=== PATIENT | male | born 1960 | race Hispanic/Latino ===

== ENCOUNTER → 2019-10-04 | Outpatient (CLI) | payer OTHER | END | disposition home or self-care (01) | LOC: RAH 10:23 | PROVIDERS: ATTEND Nurse Practitioner Family | DX: Z13.6 Encounter for screening for cardiovascular disorders (principal) | CPT/HCPCS: 75571 ==

== ENCOUNTER 2020-05-28 06:28 | Day surgery (SDC) | payer OTHER ==
[~2020-05-28] VITALS: Ht 175.3 cm; Wt 101.6 kg
[~2020-05-28 06:28] MED LIST: CYAN-35 PO; NAPR220C15 PO; SODIUM CHLORIDE 0.9% 1000ML 1,000 ML IV ONE
[2020-05-28 07:06] VITALS: BP 144/89
[2020-05-28] MEDS ORDERED: PROPOFOL 10 MG/ML 20ML VIAL IV ONE ×2 (08:02)
[2020-05-28] MEDS ORDERED: LIDOCAINE HCL 1% 20 ML VIAL ONE (08:02)
[2020-05-28 08:22] VITALS: BP 110/69
[2020-05-28 08:27] VITALS: BP 121/82
[2020-05-28 08:32] VITALS: BP 117/74
[2020-05-28 08:45] VITALS: BP 128/80
[2020-05-28 09:01] VITALS: BP 126/80
== END 2020-05-28 09:04 | disposition home or self-care (01) ==
LOC: DAH 06:28 → ENDO 06:28
PROVIDERS: ATTEND Internal Medicine Gastroenterology
DX: Z12.11 Encounter for screening for malignant neoplasm of colon (principal); Z86.010 Personal history of colon polyps; K57.30 Diverticulosis of large intestine without perforation or abscess without bleeding; K29.70 Gastritis, unspecified, without bleeding; K31.89 Other diseases of stomach and duodenum; K64.9 Unspecified hemorrhoids; R14.2 Eructation; E78.5 Hyperlipidemia, unspecified; M19.90 Unspecified osteoarthritis, unspecified site; Z20.828 Contact with and (suspected) exposure to other viral communicable diseases; Z79.899 Other long term (current) drug therapy
CPT/HCPCS: 43239; A4215; A4221; A4222; A4223; A4606; A4620; A4663; C9803; G0105; J2704 ×2; J7030; U0003

== ENCOUNTER 2020-05-29 05:58 | Day surgery (SDC) | payer OTHER ==
[~2020-05-29] VITALS: Ht 175.3 cm; Wt 101.6 kg
[2020-05-29] VITALS (8 sets, daily range): BP systolic 101–142; BP diastolic 65–86
[~2020-05-29 05:58] MED LIST changes: -SODIUM CHLORIDE 0.9% 1000ML 1,000 ML IV ONE
[2020-05-29] MEDS ORDERED: 0.9%NACL 1000ML 1,000 ML IV ONE (06:31)
[2020-05-29] MEDS ORDERED: PROPOFOL 10 MG/ML 20ML VIAL IV ONE ×3 (07:53→08:11)
[2020-05-29] MEDS ORDERED: LIDOCAINE HCL 1% 20 ML VIAL ONE (07:54)
== END 2020-05-29 08:55 | disposition home or self-care (01) ==
LOC: DAH 05:58 → ENDO 05:58
PROVIDERS: ATTEND Internal Medicine Gastroenterology
DX: Z12.11 Encounter for screening for malignant neoplasm of colon (principal); D12.2 Benign neoplasm of ascending colon; K64.1 Second degree hemorrhoids; K57.30 Diverticulosis of large intestine without perforation or abscess without bleeding; K63.89 Other specified diseases of intestine; R14.2 Eructation; E78.5 Hyperlipidemia, unspecified; M19.90 Unspecified osteoarthritis, unspecified site; Z86.010 Personal history of colon polyps; Z79.899 Other long term (current) drug therapy
CPT/HCPCS: 45380; 45385; A4215; A4221; A4222; A4223; A4606; A4620; A4663; J2704 ×3; J7030

== ENCOUNTER → 2020-08-27 | Outpatient (CLI) | payer OTHER | END | disposition home or self-care (01) | LOC: RAH 10:26 | PROVIDERS: ATTEND Nurse Practitioner Family | DX: M25.561 Pain in right knee (principal); M17.12 Unilateral primary osteoarthritis, left knee; M16.0 Bilateral primary osteoarthritis of hip; M19.041 Primary osteoarthritis, right hand; M19.042 Primary osteoarthritis, left hand | CPT/HCPCS: 73521; 73562 ==

== ENCOUNTER → 2020-10-01 | Outpatient (CLI) | payer OTHER ==
[2020-10-01 11:15] LABS: BASOPHILS % (AUTO) 0.7 % (0.0-5.0); EOSINOPHILS % (AUTO) 3.2 % (0.0-8.0); HEMATOCRIT 43.9 % (42-54); LYMPHOCYTES % (AUTO) 23.3 % (21.0-51.0); MEAN CORPUSCULAR VOLUME 93.8 fL (79-99); MONOCYTES % (AUTO) 7.1 % (3.0-13.0); NEUTROPHILS % (AUTO) 65.3 % (40.0-77.0); PLATELET COUNT (AUTO) 202 K/uL (130-400); RED BLOOD CELL COUNT(AUTO) 4.68 MIL/uL (4.50-6.20); RED CELL DISTRIBUTION WIDTH 13.2 % (11.0-15.5); WHITE BLOOD COUNT (AUTO) 7.5 K/uL (4.8-10.8)
[2020-10-01 11:31] LABS: APPEARANCE,URINE Clear (CLEAR); BILIRUBIN,URINE Negative (NEGATIVE); COLOR,URINE Yellow (YELLOW); GLUCOSE, URINE (UA) Negative (NEGATIVE); KETONES,URINE Negative (NEGATIVE); LEUKOCYTE ESTERASE ,URINE Trace (NEGATIVE); NITRATE,URINE Negative (NEGATIVE); OCCULT BLOOD,URINE Negative (NEGATIVE); PROTEIN,URINE Negative (NEGATIVE); UROBILINOGEN,URINE 0.2 mg/dL (0.2-1.0)
[2020-10-01 11:49] LABS: ALBUMIN 3.9 g/dL (3.5-5.0); BILIRUBIN,TOTAL 0.9 mg/dL (0.2-1.0); CREATININE 0.9 mg/dL (0.5-1.5); POTASSIUM 4.3 mmol/L (3.5-5.1); THYROID STIMULATING HORMONE 1.68 uIU/mL (0.36-3.74); TOTAL PROTEIN, SERUM 7.9 g/dL (6.0-8.3)
[2020-10-01 12:03] LABS: BACTERIA,URINE Rare /HPF (None Seen); MUCUS,URINE Few LPF (None Seen); RBC,URINE 0-1 /HPF (0-1); SQUAMOUS EPITHELIAL CELL,UR Rare /HPF (0-2); WBC,URINE 0-1 /HPF (0-1)
[2020-10-01 12:29] LABS: ERYTHROCYTE SEDIMENTATION RATE 10 MM/HR (0-20)
== END | disposition home or self-care (01) ==
LOC: LAB 10:11
PROVIDERS: ATTEND Nurse Practitioner Family
DX: Z13.29 Encounter for screening for other suspected endocrine disorder (principal); Z13.21 Encounter for screening for nutritional disorder; I10 Essential (primary) hypertension; M17.0 Bilateral primary osteoarthritis of knee
CPT/HCPCS: 36415; 80053; 80061; 81001; 82306; 84439; 84443; 85025; 85651; 86038; 86215; 86235; 86431

== ENCOUNTER → 2020-12-06 | Outpatient (CLI) | payer OTHER ==
[2020-12-06 09:34] LABS: BASOPHILS % (AUTO) 0.4 % (0.0-5.0); EOSINOPHILS % (AUTO) 2.3 % (0.0-8.0); HEMATOCRIT 45.1 % (42-54); LYMPHOCYTES % (AUTO) 18.9 % (21.0-51.0); MEAN CORPUSCULAR HEMOGLOBIN 31.1 pg (27.0-33.0); MEAN CORPUSCULAR HGB CONC 32.6 g/dL (32.0-36.0); MEAN CORPUSCULAR VOLUME 95.6 fL (79-99); MONOCYTES % (AUTO) 6.5 % (3.0-13.0); NEUTROPHILS % (AUTO) 71.5 % (40.0-77.0); PLATELET COUNT (AUTO) 193 K/uL (130-400); RED BLOOD CELL COUNT(AUTO) 4.72 MIL/uL (4.50-6.20); RED CELL DISTRIBUTION WIDTH 12.9 % (11.0-15.5); WHITE BLOOD COUNT (AUTO) 7.3 K/uL (4.8-10.8)
[2020-12-06 09:35] LABS: APPEARANCE,URINE Clear (CLEAR); BILIRUBIN,URINE Negative (NEGATIVE); COLOR,URINE Yellow (YELLOW); GLUCOSE, URINE (UA) Negative (NEGATIVE); KETONES,URINE Negative (NEGATIVE); LEUKOCYTE ESTERASE ,URINE Negative (NEGATIVE); NITRATE,URINE Negative (NEGATIVE); OCCULT BLOOD,URINE Negative (NEGATIVE); PROTEIN,URINE Negative (NEGATIVE); UROBILINOGEN,URINE 0.2 mg/dL (0.2-1.0)
[2020-12-06 10:16] LABS: BILIRUBIN,TOTAL 0.6 mg/dL (0.2-1.0); CREATININE 0.9 mg/dL (0.5-1.5); CRP QUANTITATIVE 5.4 mg/L (0.00-9.0); POTASSIUM 4.1 mmol/L (3.5-5.1); THYROID STIMULATING HORMONE 2.29 uIU/mL (0.36-3.74)
[2020-12-06 10:40] LABS: ERYTHROCYTE SEDIMENTATION RATE 10 MM/HR (0-20)
== END | disposition home or self-care (01) ==
LOC: LAB 08:35
PROVIDERS: ATTEND Nurse Practitioner Family
DX: Z13.29 Encounter for screening for other suspected endocrine disorder (principal); Z13.220 Encounter for screening for lipoid disorders; Z13.21 Encounter for screening for nutritional disorder; Z12.5 Encounter for screening for malignant neoplasm of prostate; I10 Essential (primary) hypertension
CPT/HCPCS: 36415; 80053; 80061; 81003; 82306; 84153; 84439; 84443; 85025; 85651; 86140

== ENCOUNTER → 2020-12-25 | Outpatient (CLI) | payer OTHER | END | disposition home or self-care (01) | LOC: RAH 08:37 | PROVIDERS: ATTEND Orthopaedic Surgery | DX: S83.242A Other tear of medial meniscus, current injury, left knee, initial encounter (principal); M17.12 Unilateral primary osteoarthritis, left knee; M25.462 Effusion, left knee; X58.XXXA Exposure to other specified factors, initial encounter; Y93.89 Activity, other specified; Y92.89 Other specified places as the place of occurrence of the external cause; Y99.8 Other external cause status | CPT/HCPCS: 73721 ==

== ENCOUNTER 2021-01-31 08:00 | Inpatient (IN) | payer OTHER ==
[~2021-01-31] VITALS: Ht 172.7 cm; Wt 101.6 kg
[2021-01-31 09:21] LABS: PROTHROMBIN TIME 10.9 SEC (9.6-11.6)
[2021-01-31 09:22] LABS: CREATININE 0.9 mg/dL (0.5-1.5); POTASSIUM 4.5 mmol/L (3.5-5.1)
[2021-01-31 09:30] LABS: BILIRUBIN,URINE Negative (NEGATIVE); COLOR,URINE Yellow (YELLOW); GLUCOSE, URINE (UA) Negative (NEGATIVE); KETONES,URINE Negative (NEGATIVE); LEUKOCYTE ESTERASE ,URINE Negative (NEGATIVE); NITRATE,URINE Negative (NEGATIVE); OCCULT BLOOD,URINE Negative (NEGATIVE); PROTEIN,URINE Negative (NEGATIVE)
[2021-01-31] MEDS ORDERED: HYDR12.54 PO (09:42)
[2021-01-31] MEDS ORDERED: AMLO-257 PO (09:42)
[2021-01-31] MEDS ORDERED: LOSA50TA64 PO (09:42)
[2021-01-31 09:47] LABS: APPEARANCE,URINE CLEAR (CLEAR)
[2021-02-03 07:10] VITALS: BP 122/74
[2021-02-03] MEDS ORDERED: LACTATED RINGERS 1000ML 1,000 ML IV ONE (07:28)
[2021-02-03] MEDS ORDERED: CEFAZOLIN SODIUM 1 GM VIAL ONE (07:28)
[2021-02-04] MEDS ORDERED: CEFAZOLIN SODIUM 1 GM VIAL IVP SCH (05:00)
[2021-02-07] VITALS (20 sets, daily range): BP systolic 124–153; BP diastolic 72–89
[2021-02-07] MEDS ORDERED: LACTATED RINGERS 1000ML 1,000 ML IV ONE (06:25)
[2021-02-07] MEDS ORDERED: OLME40TA18 PO (06:59)
[2021-02-07] MEDS ORDERED: LIDOCAINE PF 100MG/5ML (2%) SYRINGE 5ML ONE (07:04)
[2021-02-07] MEDS ORDERED: SUCCINYLCHOLINE CHLORIDE 20 MG/ML 10 ML VIAL ONE (07:04)
[2021-02-07] MEDS ORDERED: ONDANSETRON 4MG INJ ONE ×2 (07:04→10:03)
[2021-02-07] MEDS ORDERED: GLYCOPYRROLATE 1 MG/5 ML SYRINGE ONE (07:05)
[2021-02-07] MEDS ORDERED: DEXAMETHASONE SOD PHOSPHATE 10MG/ML 1ML VIAL ONE (07:05)
[2021-02-07] MEDS ORDERED: PROPOFOL 10 MG/ML 20ML VIAL IV ONE (07:05)
[2021-02-07] MEDS: CEFAZOLIN SODIUM 1 GM VIAL ONE ×2 (07:06→09:15)
[2021-02-07] MEDS ORDERED: MIDAZOLAM HCL 1 MG/ML 2ML VIAL ONE (07:06)
[2021-02-07] MEDS ORDERED: NEOSTIGMINE 5MG/5ML SYR IV ONE (07:06)
[2021-02-07] MEDS ORDERED: ROCURONIUM 10MG/1ML SYR 10 MG/ML ML ONE ×2 (07:07→09:17)
[2021-02-07] MEDS ORDERED: FENTANYL CITRATE PF 50 MCG/1 ML 2ML VIAL ONE ×2 (07:07→10:58)
[2021-02-07] MEDS ORDERED: ROPIVACAINE 0.5% 5MG/ML 30ML IJ ONE (07:09)
[2021-02-07] MEDS ORDERED: ALBUMIN (HUMAN) 5% 250 ML IV ONE (07:19)
[2021-02-07] MEDS ORDERED: CEFAZOLIN SODIUM 1 GM VIAL ONE (07:37)
[2021-02-07] MEDS ORDERED: TRANEXAMIC ACID 1000MG/10ML ONE ×2 (08:34→12:29)
[2021-02-07] MEDS ORDERED: CEFAZOLIN SODIUM 1 GM VIAL IRRIG ONE (09:45)
[2021-02-07] MEDS ORDERED: MEPERIDINE-PF 25 MG/ML SYG ONE ×3 (10:54→12:43)
[2021-02-07] MEDS ORDERED: TEMAZEPAM 15 MG CAPSULE PO PRN (12:00)
[2021-02-07] MEDS ORDERED: POTASSIUM CHLORIDE 20MEQ/100ML 100 ML IV PRN (12:00)
[2021-02-07] MEDS ORDERED: ONDANSETRON 4MG INJ IVP PRN (12:00)
[2021-02-07] MEDS ORDERED: OXYCODONE HCL 5 MG TAB PO PRN (12:00)
[2021-02-07] MEDS ORDERED: KCL 20 MEQ ERTAB PO PRN (12:00)
[2021-02-07] MEDS: ACETAMINOPHEN 500 MG TABLET PO SCH ×2 (12:00→21:18)
[2021-02-07] MEDS ORDERED: POTASSIUM CHLORIDE 10% ELIXIR 20 MEQ/15 ML UDCUP PO PRN (12:00)
[2021-02-07] MEDS ORDERED: DiphenhydrAMINE HCL 50 MG/ML VIAL IVP PRN (12:00)
[2021-02-07] MEDS ORDERED: FERROUS FUMARATE 324 MG TABLET PO PRN (12:00)
[2021-02-07] MEDS ORDERED: LIDOCAINE HCL-MPF 1% 2ML VIAL IV PRN (12:00)
[2021-02-07] MEDS: 0.9%NACL 1000ML 1,000 ML IV SCH ×2 (12:00→21:19)
[2021-02-07] MEDS ORDERED: TRAMADOL HCL 50 MG TABLET PO PRN (12:00)
[2021-02-07] MEDS: KETOROLAC 15MG/ML VIAL (15MG/ML) IV PRN ×2 (15:31→21:18)
[2021-02-07] MEDS: CEFAZOLIN SODIUM 1 GM VIAL IVP SCH (17:26)
[2021-02-07] MEDS: OXYCODONE HCL 5 MG TAB PO PRN (17:49)
[2021-02-07] MEDS: AMLODIPINE 5 MG TAB PO SCH (21:17)
[2021-02-07] MEDS: CELECOXIB 200 MG CAP PO SCH (21:18)
[2021-02-07] MEDS: FAMOTIDINE 20MG TAB PO SCH (21:18)
[2021-02-07] MEDS: PREGABALIN 25 MG CAP PO SCH (21:19)
[2021-02-07] MEDS: TAMSULOSIN HCL 0.4 MG CAP.ER.24H PO SCH (21:19)
[2021-02-07] MEDS: ASPIRIN 81 MG EC TAB PO SCH (21:19)
[2021-02-08] VITALS (7 sets, daily range): BP systolic 95–114; BP diastolic 55–68
[2021-02-08] MEDS: CEFAZOLIN SODIUM 1 GM VIAL IVP SCH (00:06)
[2021-02-08] MEDS: ACETAMINOPHEN 500 MG TABLET PO SCH ×3 (04:00→19:49)
[2021-02-08 05:49] LABS: MEAN CORPUSCULAR HEMOGLOBIN 30.9 pg (27.0-33.0); MEAN CORPUSCULAR VOLUME 93.5 fL (79-99); RED BLOOD CELL COUNT(AUTO) 3.53 MIL/uL (4.50-6.20); RED CELL DISTRIBUTION WIDTH 12.9 % (11.0-15.5); WHITE BLOOD COUNT (AUTO) 15.7 K/uL (4.8-10.8)
[2021-02-08 06:27] LABS: POTASSIUM 4.3 mmol/L (3.5-5.1)
[2021-02-08] MEDS: 0.9%NACL 1000ML 1,000 ML IV SCH (08:00)
[2021-02-08] MEDS: PREGABALIN 25 MG CAP PO SCH ×2 (08:07→19:49)
[2021-02-08] MEDS: CELECOXIB 200 MG CAP PO SCH ×2 (08:07→19:49)
[2021-02-08] MEDS: POLYETHYLENE GLYCOL 3350 17 GM POWD.PACK PO SCH (08:07)
[2021-02-08] MEDS: ASPIRIN 81 MG EC TAB PO SCH ×2 (08:08→19:49)
[2021-02-08] MEDS: FAMOTIDINE 20MG TAB PO SCH ×2 (08:08→19:49)
[2021-02-08] MEDS: OXYCODONE HCL 5 MG TAB PO PRN ×2 (08:08→14:17)
[2021-02-08] MEDS: CALCIUM CARB 500MG PO PRN ×2 (08:42→19:48)
[2021-02-08] MEDS: HYDROCHLOROTHIAZIDE 25 MG TABLET PO SCH (09:00)
[2021-02-08] MEDS: Olmesartan Medoxomil 40 MG PO SCH (09:00)
[2021-02-08] MEDS: TAMSULOSIN HCL 0.4 MG CAP.ER.24H PO SCH (19:48)
[2021-02-08] MEDS: AMLODIPINE 5 MG TAB PO SCH (19:49)
[2021-02-09] VITALS: BP 100/61
[2021-02-09 04:00] VITALS: BP 109/63
[2021-02-09] MEDS: ACETAMINOPHEN 500 MG TABLET PO SCH ×2 (05:19→12:17)
[2021-02-09 07:47] VITALS: BP 120/69
[2021-02-09] MEDS: ASPIRIN 81 MG EC TAB PO SCH (08:49)
[2021-02-09] MEDS: CELECOXIB 200 MG CAP PO SCH (08:49)
[2021-02-09] MEDS: FAMOTIDINE 20MG TAB PO SCH (08:49)
[2021-02-09] MEDS: PREGABALIN 25 MG CAP PO SCH (08:49)
[2021-02-09] MEDS: POLYETHYLENE GLYCOL 3350 17 GM POWD.PACK PO SCH (08:50)
[2021-02-09] MEDS: HYDROCHLOROTHIAZIDE 25 MG TABLET PO SCH (08:50)
[2021-02-09] MEDS: OXYCODONE HCL 5 MG TAB PO PRN ×2 (08:51→17:15)
[2021-02-09] MEDS: Olmesartan Medoxomil 40 MG PO SCH (09:00)
[2021-02-09 12:00] VITALS: BP 115/55
[2021-02-09] MEDS ORDERED: HYDR-4060 PO (14:12)
[2021-02-09] MEDS ORDERED: AEC81 PO (14:12)
[2021-02-09 16:00] VITALS: BP 109/65
[2021-02-10] MEDS ORDERED: BISACODYL 10 MG SUPP.RECT RC PRN (12:00)
== END 2021-02-09 18:50 | disposition home health service (06) | DRG 470 ==
LOC: EDSTATUS 08:00 → UNDOADMIN 02-03 06:36 → DAHIP 02-03 06:36 → 3CH 02-07 13:35
PROVIDERS: ADMIT Orthopaedic Surgery; ATTEND Orthopaedic Surgery
PROC: 0SRB0JZ Replacement of Left Hip Joint with Synthetic Substitute, Open Approach (ICD-10-PCS; principal; 2021-02-07 08:40)
DX: M16.12 Unilateral primary osteoarthritis, left hip (principal); Z20.822 Contact with and (suspected) exposure to COVID-19; I10 Essential (primary) hypertension; E78.00 Pure hypercholesterolemia, unspecified; Z82.49 Family history of ischemic heart disease and other diseases of the circulatory system
CPT/HCPCS: 36415; 73503; 80048; 81003; 85027; 85610; 87088; 87635; 87641; 97039; C1713; C1776; G0378; J0330; J0690; J1100; J1885; J2001; J2175; J2250; J2405; J2704; J2710; J2795; J3010; J3490; J7030; J7120; P9045

== ENCOUNTER → 2021-04-17 | Outpatient (CLI) | payer OTHER ==
[~2021-04-17] MED LIST changes: +AEC81 PO; +AMLO-257 PO; -CYAN-35 PO; +HYDR-4060 PO; +HYDR12.54 PO; -NAPR220C15 PO
[2021-04-17 09:18] LABS: BASOPHILS % (AUTO) 0.7 % (0.0-5.0); EOSINOPHILS % (AUTO) 4.7 % (0.0-8.0); HEMATOCRIT 44.5 % (42-54); LYMPHOCYTES % (AUTO) 25.7 % (21.0-51.0); MEAN CORPUSCULAR HEMOGLOBIN 29.9 pg (27.0-33.0); MEAN CORPUSCULAR HGB CONC 32.4 g/dL (32.0-36.0); MEAN CORPUSCULAR VOLUME 92.3 fL (79-99); MONOCYTES % (AUTO) 7.1 % (3.0-13.0); NEUTROPHILS % (AUTO) 61.4 % (40.0-77.0); PLATELET COUNT (AUTO) 213 K/uL (130-400); RED BLOOD CELL COUNT(AUTO) 4.82 MIL/uL (4.50-6.20); RED CELL DISTRIBUTION WIDTH 12.9 % (11.0-15.5); WHITE BLOOD COUNT (AUTO) 7.2 K/uL (4.8-10.8)
[2021-04-17 09:23] LABS: APPEARANCE,URINE Clear (CLEAR); BILIRUBIN,URINE Negative (NEGATIVE); COLOR,URINE Yellow (YELLOW); GLUCOSE, URINE (UA) Negative (NEGATIVE); KETONES,URINE Negative (NEGATIVE); LEUKOCYTE ESTERASE ,URINE Negative (NEGATIVE); NITRATE,URINE Negative (NEGATIVE); OCCULT BLOOD,URINE Negative (NEGATIVE); PROTEIN,URINE Negative (NEGATIVE)
[2021-04-17 09:39] LABS: ALBUMIN 4.1 g/dL (3.5-5.0); BILIRUBIN,TOTAL 0.9 mg/dL (0.2-1.0); CREATININE 0.9 mg/dL (0.5-1.5); POTASSIUM 4.2 mmol/L (3.5-5.1); THYROID STIMULATING HORMONE 2.22 uIU/mL (0.36-3.74)
[2021-04-17 10:19] LABS: ERYTHROCYTE SEDIMENTATION RATE 9 MM/HR (0-20)
== END | disposition home or self-care (01) ==
LOC: LAB 08:20
PROVIDERS: ATTEND Nurse Practitioner Family
DX: Z13.220 Encounter for screening for lipoid disorders (principal); Z13.29 Encounter for screening for other suspected endocrine disorder; I10 Essential (primary) hypertension; E55.9 Vitamin D deficiency, unspecified
CPT/HCPCS: 36415; 80053; 80061; 81003; 82306; 84439; 84443; 85025; 85651

== ENCOUNTER 2021-08-25 15:00 | Inpatient (IN) | payer OTHER ==
[~2021-08-25] VITALS: Ht 175.3 cm; Wt 103.9 kg
[2021-08-25 10:25] LABS: BASOPHILS % (AUTO) 0.6 % (0.0-5.0); EOSINOPHILS % (AUTO) 3.1 % (0.0-8.0); HEMATOCRIT 40.9 % (42-54); LYMPHOCYTES % (AUTO) 21.5 % (21.0-51.0); MEAN CORPUSCULAR HEMOGLOBIN 31.8 pg (27.0-33.0); MEAN CORPUSCULAR HGB CONC 33.7 g/dL (32.0-36.0); MEAN CORPUSCULAR VOLUME 94.2 fL (79-99); MONOCYTES % (AUTO) 6.9 % (3.0-13.0); NEUTROPHILS % (AUTO) 67.5 % (40.0-77.0); PLATELET COUNT (AUTO) 192 K/uL (130-400); RED BLOOD CELL COUNT(AUTO) 4.34 MIL/uL (4.50-6.20); RED CELL DISTRIBUTION WIDTH 13.4 % (11.0-15.5); WHITE BLOOD COUNT (AUTO) 7.2 K/uL (4.8-10.8)
[2021-08-25 10:35] LABS: CREATININE 0.9 mg/dL (0.5-1.5); POTASSIUM 4.3 mmol/L (3.5-5.1)
[2021-08-25 10:48] LABS: PROTHROMBIN TIME 10.9 SEC (9.6-11.6)
[2021-08-25 10:48] LABS: APPEARANCE,URINE Clear (CLEAR); BILIRUBIN,URINE Negative (NEGATIVE); COLOR,URINE Yellow (YELLOW); GLUCOSE, URINE (UA) Negative (NEGATIVE); KETONES,URINE Negative (NEGATIVE); LEUKOCYTE ESTERASE ,URINE Negative (NEGATIVE); NITRATE,URINE Negative (NEGATIVE); OCCULT BLOOD,URINE Negative (NEGATIVE); PH,URINE 5.5 (5.0-8.0); PROTEIN,URINE Negative (NEGATIVE); UROBILINOGEN,URINE 0.2 mg/dL (0.2-1.0)
[~2021-08-25 15:00] MED LIST changes: -AEC81 PO; -HYDR-4060 PO
[2021-08-26 10:02] VITALS: BP 154/83
[2021-08-26] MEDS ORDERED: OLME20TA22 PO (10:23)
[2021-08-26] MEDS ORDERED: ATOR10 PO (10:23)
[2021-08-26] MEDS ORDERED: HYDR-4060 PO (10:27)
[2021-08-26] MEDS ORDERED: NAPR220C15 PO (10:29)
[2021-08-27] VITALS (21 sets, daily range): BP systolic 112–154; BP diastolic 59–90
[2021-08-27] MEDS: CEFAZOLIN SODIUM 1 GM VIAL IVP ONE ×2 (11:30→15:46)
[2021-08-27] MEDS ORDERED: CEFAZOLIN SODIUM 1 GM VIAL ONE ×3 (11:40→23:19)
[2021-08-27] MEDS ORDERED: LACTATED RINGERS 1000ML 1,000 ML IV ONE (11:40)
[2021-08-27] MEDS ORDERED: ACETAMINOPHEN 500 MG TABLET ONE ×2 (14:12→14:17)
[2021-08-27] MEDS ORDERED: CELECOXIB 200 MG CAP ONE ×2 (14:12→14:17)
[2021-08-27] MEDS ORDERED: METOCLOPRAMIDE 10 MG/2 ML VIAL ONE (14:12)
[2021-08-27] MEDS ORDERED: TRANEXAMIC ACID 1000MG/10ML ONE ×2 (14:47→20:08)
[2021-08-27] MEDS ORDERED: LIDOCAINE PF 100MG/5ML (2%) SYRINGE 5ML ONE (15:21)
[2021-08-27] MEDS ORDERED: ROCURONIUM 10MG/1ML SYR 10 MG/ML ML ONE ×2 (15:21→16:37)
[2021-08-27] MEDS ORDERED: SUCCINYLCHOLINE CHLORIDE 20 MG/ML 10 ML VIAL ONE (15:21)
[2021-08-27] MEDS ORDERED: PROPOFOL 10 MG/ML 20ML VIAL IV ONE (15:21)
[2021-08-27] MEDS ORDERED: FENTANYL CITRATE PF 50 MCG/1 ML 2ML VIAL ONE ×2 (15:21→17:43)
[2021-08-27] MEDS ORDERED: MIDAZOLAM HCL 1 MG/ML 2ML VIAL ONE (15:21)
[2021-08-27] MEDS ORDERED: GLYCOPYRROLATE 1 MG/5 ML SYRINGE ONE ×2 (15:51→19:37)
[2021-08-27] MEDS ORDERED: EPHEDRINE SULFATE 50 MG/ML AMPULE ONE (16:30)
[2021-08-27] MEDS ORDERED: ROPIVACAINE 0.5% 5MG/ML 30ML IJ ONE (17:01)
[2021-08-27] MEDS ORDERED: ROCURONIUM BROMIDE 10MG/1ML 5ML VL ONE (17:46)
[2021-08-27] MEDS ORDERED: ONDANSETRON 4MG INJ IVP PRN (19:30)
[2021-08-27] MEDS ORDERED: TEMAZEPAM 15 MG CAPSULE PO PRN (19:30)
[2021-08-27] MEDS ORDERED: POTASSIUM CHLORIDE 20MEQ/100ML 100 ML IV PRN (19:30)
[2021-08-27] MEDS ORDERED: DiphenhydrAMINE HCL 50 MG/ML VIAL IVP PRN (19:30)
[2021-08-27] MEDS ORDERED: KETOROLAC 15MG/ML VIAL (15MG/ML) IV PRN (19:30)
[2021-08-27] MEDS ORDERED: FERROUS FUMARATE 324 MG TABLET PO PRN (19:30)
[2021-08-27] MEDS ORDERED: TRAMADOL HCL 50 MG TABLET PO PRN (19:30)
[2021-08-27] MEDS ORDERED: LIDOCAINE HCL-MPF 1% 2ML VIAL IV PRN (19:30)
[2021-08-27] MEDS: ACETAMINOPHEN 500 MG TABLET PO SCH ×2 (19:30→23:25)
[2021-08-27] MEDS ORDERED: POTASSIUM CHLORIDE 10% ELIXIR 20 MEQ/15 ML UDCUP PO PRN (19:30)
[2021-08-27] MEDS ORDERED: KCL 20 MEQ ERTAB PO PRN (19:30)
[2021-08-27] MEDS ORDERED: NEOSTIGMINE 5MG/5ML SYR IV ONE (19:37)
[2021-08-27] MEDS ORDERED: KETOROLAC 30MG VIAL (30MG/ML) ONE (20:07)
[2021-08-27] MEDS ORDERED: MEPERIDINE-PF 25 MG/ML SYG ONE (20:08)
[2021-08-27] MEDS: CELECOXIB 200 MG CAP PO SCH (21:00)
[2021-08-27] MEDS: 0.9%NACL 1000ML 1,000 ML IV SCH (21:58)
[2021-08-27] MEDS: OXYCODONE HCL 5 MG TAB PO PRN (23:25)
[2021-08-27] MEDS: ASPIRIN 81 MG EC TAB PO SCH (23:25)
[2021-08-27] MEDS: FAMOTIDINE 20MG TAB PO SCH (23:26)
[2021-08-27] MEDS: CEFAZOLIN SODIUM 1 GM VIAL IVP SCH (23:26)
[2021-08-27] MEDS: PREGABALIN 25 MG CAP PO SCH (23:26)
[2021-08-28] VITALS (9 sets, daily range): BP systolic 100–122; BP diastolic 56–76
[2021-08-28] MEDS: 0.9%NACL 1000ML 1,000 ML IV SCH ×2 (00:33→14:31)
[2021-08-28 05:01] LABS: HEMATOCRIT 32.7 % (42-54); MEAN CORPUSCULAR HEMOGLOBIN 32.2 pg (27.0-33.0); MEAN CORPUSCULAR HGB CONC 34.9 g/dL (32.0-36.0); MEAN CORPUSCULAR VOLUME 92.4 fL (79-99); RED BLOOD CELL COUNT(AUTO) 3.54 MIL/uL (4.50-6.20); RED CELL DISTRIBUTION WIDTH 13.3 % (11.0-15.5); WHITE BLOOD COUNT (AUTO) 12.1 K/uL (4.8-10.8)
[2021-08-28 05:09] LABS: POTASSIUM 3.9 mmol/L (3.5-5.1)
[2021-08-28] MEDS: OXYCODONE HCL 5 MG TAB PO PRN ×2 (08:10→22:31)
[2021-08-28] MEDS: CALCIUM CARB 500MG PO PRN ×2 (09:47→20:09)
[2021-08-28] MEDS: ASPIRIN 81 MG EC TAB PO SCH ×2 (09:47→20:01)
[2021-08-28] MEDS: CEFAZOLIN SODIUM 1 GM VIAL IVP SCH (09:47)
[2021-08-28] MEDS: POLYETHYLENE GLYCOL 3350 17 GM POWD.PACK PO SCH (09:47)
[2021-08-28] MEDS: FAMOTIDINE 20MG TAB PO SCH ×2 (09:48→20:01)
[2021-08-28] MEDS: LOSARTAN 100 MG TABLET PO SCH (09:48)
[2021-08-28] MEDS: HYDROCHLOROTHIAZIDE 25 MG TABLET PO SCH (09:48)
[2021-08-28] MEDS: CELECOXIB 200 MG CAP PO SCH ×2 (09:48→20:01)
[2021-08-28] MEDS: PREGABALIN 25 MG CAP PO SCH ×2 (09:48→20:01)
[2021-08-28] MEDS: ACETAMINOPHEN 500 MG TABLET PO SCH ×2 (11:47→18:44)
[2021-08-28] MEDS: ATORVASTATIN 10 MG TABLET PO SCH (20:01)
[2021-08-28] MEDS: AMLODIPINE 5 MG TAB PO SCH (20:09)
[2021-08-29 04:06] VITALS: BP 107/61
[2021-08-29] MEDS: ACETAMINOPHEN 500 MG TABLET PO SCH ×3 (04:27→20:45)
[2021-08-29 08:20] VITALS: BP 124/74
[2021-08-29] MEDS: CELECOXIB 200 MG CAP PO SCH ×2 (08:38→20:44)
[2021-08-29] MEDS: PREGABALIN 25 MG CAP PO SCH ×2 (08:38→20:44)
[2021-08-29] MEDS: OXYCODONE HCL 5 MG TAB PO PRN ×2 (08:38→13:13)
[2021-08-29] MEDS: LOSARTAN 100 MG TABLET PO SCH (08:38)
[2021-08-29] MEDS: FAMOTIDINE 20MG TAB PO SCH ×2 (08:38→20:44)
[2021-08-29] MEDS: ASPIRIN 81 MG EC TAB PO SCH ×2 (08:39→20:44)
[2021-08-29] MEDS: HYDROCHLOROTHIAZIDE 25 MG TABLET PO SCH (08:39)
[2021-08-29] MEDS: POLYETHYLENE GLYCOL 3350 17 GM POWD.PACK PO SCH (08:39)
[2021-08-29 11:04] VITALS: BP 125/75
[2021-08-29 15:37] VITALS: BP 114/67
[2021-08-29] MEDS ORDERED: HYDR-4060 PO (19:46)
[2021-08-29] MEDS ORDERED: AEC81 PO (19:46)
[2021-08-29] MEDS: AMLODIPINE 5 MG TAB PO SCH (20:44)
[2021-08-29] MEDS: ATORVASTATIN 10 MG TABLET PO SCH (20:44)
[2021-08-30] MEDS ORDERED: BISACODYL 10 MG SUPP.RECT RC PRN (19:30)
== END 2021-08-29 22:35 | disposition home health service (06) | DRG 470 ==
LOC: EDSTATUS 15:00 → DAHIP 08-27 10:31 → 4AH 08-27 21:05
PROVIDERS: ADMIT Orthopaedic Surgery; ATTEND Orthopaedic Surgery
PROC: 0SR90JZ Replacement of Right Hip Joint with Synthetic Substitute, Open Approach (ICD-10-PCS; principal; 2021-08-27 15:21)
PROC: 3E0T3BZ Introduction of Anesthetic Agent into Peripheral Nerves and Plexi, Percutaneous Approach (ICD-10-PCS; 2021-08-27 15:21)
DX: M16.11 Unilateral primary osteoarthritis, right hip (principal); D64.9 Anemia, unspecified; E78.00 Pure hypercholesterolemia, unspecified; I10 Essential (primary) hypertension; Z82.49 Family history of ischemic heart disease and other diseases of the circulatory system; Z96.642 Presence of left artificial hip joint
CPT/HCPCS: 36415; 73503; 80048; 81003; 85025; 85027; 85610; 87635; 87641; 97039; C1776; G0378; J0330; J0690; J1885; J2001; J2175; J2250; J2704; J2710; J2765; J2795; J3010; J3490; J7120

== ENCOUNTER → 2022-06-02 | Outpatient (CLI) | payer OTHER, MEDICAID ==
[~2022-06-02] MED LIST changes: +ACET-2247 PO; +AEC81 PO; +ALBU8.5H8 IH; +ATOR10 PO; +D-ME1POW16 PO; +HYDR-4060 PO; +OLME20TA22 PO
[2022-06-02 10:20] LABS: BASOPHILS % (AUTO) 0.7 % (0.0-5.0); HEMATOCRIT 42.7 % (42-54); LYMPHOCYTES % (AUTO) 31.5 % (21.0-51.0); MEAN CORPUSCULAR HEMOGLOBIN 31.3 pg (27.0-33.0); MEAN CORPUSCULAR HGB CONC 33.3 g/dL (32.0-36.0); MEAN CORPUSCULAR VOLUME 94.3 fL (79-99); MONOCYTES % (AUTO) 7.2 % (3.0-13.0); NEUTROPHILS % (AUTO) 57.2 % (40.0-77.0); PLATELET COUNT (AUTO) 170 K/uL (130-400); RED BLOOD CELL COUNT(AUTO) 4.53 MIL/uL (4.50-6.20); RED CELL DISTRIBUTION WIDTH 13.2 % (11.0-15.5); WHITE BLOOD COUNT (AUTO) 5.7 K/uL (4.8-10.8)
[2022-06-02 10:32] LABS: APPEARANCE,URINE CLEAR (CLEAR); BILIRUBIN,URINE NEGATIVE (NEGATIVE); COLOR,URINE LIGHT-YELLOW (YELLOW); GLUCOSE, URINE (UA) NEGATIVE (NEGATIVE); KETONES,URINE NEGATIVE (NEGATIVE); LEUKOCYTE ESTERASE ,URINE NEGATIVE Leu/uL (NEGATIVE); NITRATE,URINE NEGATIVE (NEGATIVE); OCCULT BLOOD,URINE NEGATIVE (NEGATIVE); PH,URINE 5.5 (5.0-8.0); PROTEIN,URINE NEGATIVE (NEGATIVE); UROBILINOGEN,URINE 0.2 mg/dL (0.2-1.0)
[2022-06-02 11:28] LABS: ALBUMIN 3.7 g/dL (3.5-5.0); CREATININE 0.9 mg/dL (0.5-1.5); POTASSIUM 4.2 mmol/L (3.5-5.1); THYROID STIMULATING HORMONE 1.94 uIU/mL (0.36-3.74); TOTAL PROTEIN, SERUM 7.3 g/dL (6.0-8.3)
[2022-06-02 11:37] LABS: ERYTHROCYTE SEDIMENTATION RATE 17 MM/HR (0-20)
== END | disposition home or self-care (01) ==
LOC: LAB 09:44
PROVIDERS: ATTEND Nurse Practitioner Family
DX: Z12.5 Encounter for screening for malignant neoplasm of prostate (principal); I10 Essential (primary) hypertension; E78.00 Pure hypercholesterolemia, unspecified; E59 Dietary selenium deficiency; M13.0 Polyarthritis, unspecified
CPT/HCPCS: 36415; 80053; 80061; 81003; 82306; 84153; 84439; 84443; 84481; 85025; 85651

== ENCOUNTER 2022-06-24 08:00 | Emergency (ER) | payer OTHER, MEDICAID ==
[~2022-06-24] VITALS: Ht 175.3 cm; Wt 108.9 kg
[2022-06-24 08:31] LABS: BASOPHILS % (AUTO) 0.7 % (0.0-5.0); EOSINOPHILS % (AUTO) 3.4 % (0.0-8.0); HEMATOCRIT 43.4 % (42-54); LYMPHOCYTES % (AUTO) 26.6 % (21.0-51.0); MEAN CORPUSCULAR HEMOGLOBIN 31.7 pg (27.0-33.0); MEAN CORPUSCULAR HGB CONC 33.9 g/dL (32.0-36.0); MEAN CORPUSCULAR VOLUME 93.5 fL (79-99); MONOCYTES % (AUTO) 8.5 % (3.0-13.0); NEUTROPHILS % (AUTO) 60.5 % (40.0-77.0); PLATELET COUNT (AUTO) 169 K/uL (130-400); RED BLOOD CELL COUNT(AUTO) 4.64 MIL/uL (4.50-6.20); RED CELL DISTRIBUTION WIDTH 12.7 % (11.0-15.5)
[2022-06-24 08:40] LABS: CREATININE 1.1 mg/dL (0.5-1.5); POTASSIUM 3.3 mmol/L (3.5-5.1)
[2022-06-24 08:44] LABS: ALBUMIN 3.9 g/dL (3.5-5.0); TOTAL PROTEIN, SERUM 7.4 g/dL (6.0-8.3)
[2022-06-24] MEDS ORDERED: PANTOPRAZOLE 40 MG/VIAL IVP STA (08:55)
[2022-06-24] MEDS ORDERED: POTASSIUM BICARB/CIT AC 25 MEQ TABLET.EFF PO STA (08:55)
[2022-06-24 09:09] LABS: APPEARANCE,URINE CLEAR (CLEAR); BILIRUBIN,URINE NEGATIVE (NEGATIVE); COLOR,URINE LIGHT-YELLOW (YELLOW); GLUCOSE, URINE (UA) NEGATIVE (NEGATIVE); KETONES,URINE NEGATIVE (NEGATIVE); LEUKOCYTE ESTERASE ,URINE NEGATIVE Leu/uL (NEGATIVE); NITRATE,URINE NEGATIVE (NEGATIVE); OCCULT BLOOD,URINE NEGATIVE (NEGATIVE); PROTEIN,URINE NEGATIVE (NEGATIVE); UROBILINOGEN,URINE 0.2 mg/dL (0.2-1.0)
[2022-06-24 09:24] VITALS: BP 113/69
[2022-06-24] MEDS ORDERED: PANT40TA55 PO (09:40)
[2022-06-24] MEDS ORDERED: POTA-200 PO (09:40)
== END 2022-06-24 09:59 | disposition home or self-care (01) ==
LOC: EDH 08:00
DX: K21.9 Gastro-esophageal reflux disease without esophagitis (principal); E87.6 Hypokalemia; E66.9 Obesity, unspecified; E78.00 Pure hypercholesterolemia, unspecified; I10 Essential (primary) hypertension; Z79.899 Other long term (current) drug therapy; Z79.82 Long term (current) use of aspirin; Z98.890 Other specified postprocedural states
CPT/HCPCS: 99285; 96374; 71045; 84484; 80053; 83690; 85025; 81003; 36415; 93005; C9113

== ENCOUNTER → 2022-07-17 | Outpatient (CLI) | payer OTHER, MEDICAID ==
[~2022-07-17] MED LIST changes: +PANT40TA55 PO; +POTA-200 PO
[2022-07-17 11:31] LABS: BASOPHILS % (AUTO) 0.6 % (0.0-5.0); EOSINOPHILS % (AUTO) 3.1 % (0.0-8.0); HEMATOCRIT 43.6 % (42-54); MEAN CORPUSCULAR HEMOGLOBIN 31.6 pg (27.0-33.0); MEAN CORPUSCULAR HGB CONC 33.5 g/dL (32.0-36.0); MEAN CORPUSCULAR VOLUME 94.4 fL (79-99); MONOCYTES % (AUTO) 7.9 % (3.0-13.0); NEUTROPHILS % (AUTO) 61.2 % (40.0-77.0); PLATELET COUNT (AUTO) 185 K/uL (130-400); RED BLOOD CELL COUNT(AUTO) 4.62 MIL/uL (4.50-6.20); RED CELL DISTRIBUTION WIDTH 12.9 % (11.0-15.5); WHITE BLOOD COUNT (AUTO) 6.5 K/uL (4.8-10.8)
[2022-07-17 11:46] LABS: INR 0.94 (0.85-1.15); PROTHROMBIN TIME 10.3 SEC (9.6-11.6)
[2022-07-17 11:47] LABS: ALBUMIN 3.9 g/dL (3.5-5.0); CREATININE 0.9 mg/dL (0.5-1.5); PARTIAL THROMBOPLASTIN TIME 27.1 SEC (26.3-35.5); POTASSIUM 4.2 mmol/L (3.5-5.1); TOTAL PROTEIN, SERUM 7.3 g/dL (6.0-8.3)
== END | disposition home or self-care (01) ==
LOC: LAB 10:39
PROVIDERS: ATTEND Nurse Practitioner Family
DX: Z01.818 Encounter for other preprocedural examination (principal)
CPT/HCPCS: 36415; 71046; 80053; 85025; 85610; 85730

== ENCOUNTER 2022-08-17 10:30 | Inpatient (IN) | payer OTHER, MEDICAID ==
[~2022-08-17] VITALS: Ht 172.7 cm; Wt 106.5 kg
[2022-08-17 09:37] LABS: APPEARANCE,URINE CLEAR (CLEAR); BILIRUBIN,URINE NEGATIVE (NEGATIVE); COLOR,URINE LIGHT-YELLOW (YELLOW); GLUCOSE, URINE (UA) NEGATIVE (NEGATIVE); KETONES,URINE NEGATIVE (NEGATIVE); LEUKOCYTE ESTERASE ,URINE NEGATIVE Leu/uL (NEGATIVE); NITRATE,URINE NEGATIVE (NEGATIVE); OCCULT BLOOD,URINE NEGATIVE (NEGATIVE); PH,URINE 5.5 (5.0-8.0); PROTEIN,URINE NEGATIVE (NEGATIVE); UROBILINOGEN,URINE 0.2 mg/dL (0.2-1.0)
[2022-08-17 09:47] LABS: BASOPHILS % (AUTO) 0.7 % (0.0-5.0); EOSINOPHILS % (AUTO) 4.6 % (0.0-8.0); LYMPHOCYTES % (AUTO) 31.5 % (21.0-51.0); MEAN CORPUSCULAR HEMOGLOBIN 31.3 pg (27.0-33.0); MONOCYTES % (AUTO) 8.1 % (3.0-13.0); NEUTROPHILS % (AUTO) 54.8 % (40.0-77.0); PLATELET COUNT (AUTO) 186 K/uL (130-400); RED BLOOD CELL COUNT(AUTO) 4.63 MIL/uL (4.50-6.20)
[2022-08-17 09:59] VITALS: BP 132/86
[2022-08-17] MEDS: CEFAZOLIN SODIUM 2 GM VIAL IVPB SCH (10:00)
[2022-08-17 10:01] LABS: INR 0.98 (0.85-1.15); PROTHROMBIN TIME 10.7 SEC (9.6-11.6)
[2022-08-17 10:02] LABS: ALBUMIN 3.9 g/dL (3.5-5.0); CARBON DIOXIDE 29 mmol/L (21-32); CHLORIDE 105 mmol/L (101-111); CRP QUANTITATIVE < 2.00 mg/L (0.00-9.0); GLOMERULAR FILTR. RATE CALC 86 mL/min (>90); GLUCOSE,RANDOM 107 mg/dL (70-105); PARTIAL THROMBOPLASTIN TIME 27.6 SEC (26.3-35.5); POTASSIUM 4.2 mmol/L (3.5-5.1); SODIUM SERUM 140 mmol/L (136-145); UREA NITROGEN, BLOOD 20 mg/dL (7-18)
[~2022-08-17 10:30] MED LIST changes: -ACET-2247 PO; -AEC81 PO; -ALBU8.5H8 IH; -ATOR10 PO; -D-ME1POW16 PO; -HYDR-4060 PO; -PANT40TA55 PO; -POTA-200 PO
[2022-08-17] MEDS ORDERED: NAPR220T57 PO (13:34)
[2022-08-17] MEDS ORDERED: AEC81 PO (13:34)
[2022-08-18] MEDS: CEFAZOLIN SODIUM 2 GM VIAL IVPB SCH (10:00)
[2022-08-19] VITALS (27 sets, daily range): BP systolic 95–152; BP diastolic 56–88
[2022-08-19] MEDS ORDERED: LACTATED RINGERS 1000ML 1,000 ML IV ONE (06:37)
[2022-08-19] MEDS ORDERED: KETOROLAC 30MG VIAL (30MG/ML) ONE (06:59)
[2022-08-19] MEDS ORDERED: ROPIVACAINE 0.5% 5MG/ML 30ML IJ ONE ×3 (06:59→07:28)
[2022-08-19] MEDS ORDERED: TRANEXAMIC ACID 1000MG/10ML ONE (06:59)
[2022-08-19] MEDS ORDERED: ROCURONIUM 10MG/1ML SYR 10 MG/ML ML ONE (07:08)
[2022-08-19] MEDS ORDERED: PROPOFOL 10 MG/ML 20ML VIAL IV ONE (07:08)
[2022-08-19] MEDS ORDERED: SUCCINYLCHOLINE 200MG/10ML SYR ONE (07:08)
[2022-08-19] MEDS ORDERED: MIDAZOLAM HCL 1 MG/ML 2ML VIAL ONE (07:08)
[2022-08-19] MEDS ORDERED: FENTANYL CITRATE PF 50 MCG/1 ML 2ML VIAL ONE ×3 (07:09→09:46)
[2022-08-19] MEDS ORDERED: KETOROLAC 30MG VIAL (30MG/ML) IVP ONE (07:25)
[2022-08-19] MEDS ORDERED: DEXAMETHASONE SOD PHOSPHATE 10MG/ML 1ML VIAL ONE (07:26)
[2022-08-19] MEDS ORDERED: CEFAZOLIN SODIUM 2 GM VIAL IVPB ONE (07:36)
[2022-08-19] MEDS ORDERED: TRANEXAMIC ACID 1000MG/10ML IV ONE (07:42)
[2022-08-19] MEDS ORDERED: PHENYLEPHRINE HCL 10 MG/ML 1ML VIAL IV ONE (07:49)
[2022-08-19] MEDS ORDERED: EPHEDRINE SULFATE 50 MG/ML AMPULE ONE (07:57)
[2022-08-19] MEDS: CEFAZOLIN SODIUM 2 GM VIAL IVPB SCH ×2 (10:00→11:35)
[2022-08-19] MEDS ORDERED: KCL 20 MEQ ERTAB PO PRN (10:30)
[2022-08-19] MEDS ORDERED: LIDOCAINE HCL-MPF 1% 2ML VIAL IV PRN (10:30)
[2022-08-19] MEDS ORDERED: POTASSIUM CHLORIDE 10% ELIXIR 20 MEQ/15 ML UDCUP PO PRN (10:30)
[2022-08-19] MEDS ORDERED: KETOROLAC 15MG/ML VIAL (15MG/ML) IV PRN (10:30)
[2022-08-19] MEDS ORDERED: ONDANSETRON 4MG INJ IVP PRN (10:30)
[2022-08-19] MEDS ORDERED: CYCLOBENZAPRINE HCL 10 MG TABLET PO PRN (10:30)
[2022-08-19] MEDS ORDERED: POTASSIUM CHLORIDE 20MEQ/100ML 100 ML IV PRN (10:30)
[2022-08-19] MEDS ORDERED: FERROUS FUMARATE 324 MG TABLET PO PRN (10:30)
[2022-08-19] MEDS ORDERED: CALCIUM CARB 500MG PO PRN (10:30)
[2022-08-19] MEDS ORDERED: DiphenhydrAMINE HCL 50 MG/ML VIAL IVP PRN (10:30)
[2022-08-19] MEDS ORDERED: KETOROLAC 15MG/ML VIAL (15MG/ML) ONE (10:35)
[2022-08-19] MEDS: KETOROLAC 15MG/ML VIAL (15MG/ML) IV SCH ×2 (10:37→17:54)
[2022-08-19] MEDS: 0.9%NACL 1000ML 1,000 ML IV SCH ×2 (11:36→22:14)
[2022-08-19] MEDS: HYDROCODONE/ACETAMINOPHEN 5/325 MG TAB PO PRN ×3 (11:41→20:18)
[2022-08-19] MEDS ORDERED: LOSARTAN 100 MG TABLET PO SCH (13:23)
[2022-08-19] MEDS: GABAPENTIN 100 MG CAPSULE PO SCH ×2 (14:01→20:16)
[2022-08-19] MEDS: CEFAZOLIN SODIUM 1 GM VIAL IVP SCH ×3 (14:56→22:13)
[2022-08-19] MEDS: DOCUSATE SODIUM 100 MG CAP PO SCH (20:17)
[2022-08-19] MEDS: AMLODIPINE 5 MG TAB PO SCH (20:20)
[2022-08-19] MEDS: TRAMADOL HCL 50 MG TABLET PO PRN (22:40)
[2022-08-20] MEDS: KETOROLAC 15MG/ML VIAL (15MG/ML) IV SCH (02:06)
[2022-08-20 04:35] VITALS: BP 123/72
[2022-08-20 05:10] LABS: HEMATOCRIT 35.9 % (42-54); MEAN CORPUSCULAR HEMOGLOBIN 31.6 pg (27.0-33.0); MEAN CORPUSCULAR HGB CONC 33.4 g/dL (32.0-36.0); MEAN CORPUSCULAR VOLUME 94.5 fL (79-99); RED BLOOD CELL COUNT(AUTO) 3.8 MIL/uL (4.50-6.20); RED CELL DISTRIBUTION WIDTH 12.9 % (11.0-15.5); WHITE BLOOD COUNT (AUTO) 11.7 K/uL (4.8-10.8)
[2022-08-20 05:32] LABS: CREATININE 0.9 mg/dL (0.5-1.5); POTASSIUM 3.5 mmol/L (3.5-5.1)
[2022-08-20] MEDS: 0.9%NACL 1000ML 1,000 ML IV SCH (06:30)
[2022-08-20 07:55] VITALS: BP 112/72
[2022-08-20] MEDS: POLYETHYLENE GLYCOL 3350 17 GM POWD.PACK PO SCH (08:32)
[2022-08-20] MEDS: HYDROCHLOROTHIAZIDE 25 MG TABLET PO SCH (08:33)
[2022-08-20] MEDS: ASPIRIN 325MG TAB PO SCH (08:33)
[2022-08-20] MEDS: DOCUSATE SODIUM 100 MG CAP PO SCH ×2 (08:33→20:26)
[2022-08-20] MEDS: GABAPENTIN 100 MG CAPSULE PO SCH ×3 (08:33→20:27)
[2022-08-20] MEDS: HYDROCODONE/ACETAMINOPHEN 5/325 MG TAB PO PRN ×2 (08:34→14:15)
[2022-08-20] MEDS: CEFAZOLIN SODIUM 2 GM VIAL IVPB SCH (08:38)
[2022-08-20 12:00] VITALS: BP 122/70
[2022-08-20 16:00] VITALS: BP 118/69
[2022-08-20 20:17] VITALS: BP 125/67
[2022-08-20] MEDS: AMLODIPINE 5 MG TAB PO SCH (20:27)
[2022-08-20] MEDS: TRAMADOL HCL 50 MG TABLET PO PRN (22:52)
[2022-08-21 00:39] VITALS: BP 145/90
[2022-08-21] MEDS: HYDROCODONE/ACETAMINOPHEN 5/325 MG TAB PO PRN ×2 (04:12→09:44)
[2022-08-21 04:54] VITALS: BP 159/88
[2022-08-21 08:00] VITALS: BP 150/88
[2022-08-21] MEDS: CEFAZOLIN SODIUM 2 GM VIAL IVPB SCH (09:39)
[2022-08-21] MEDS: HYDROCHLOROTHIAZIDE 25 MG TABLET PO SCH (09:43)
[2022-08-21] MEDS: DOCUSATE SODIUM 100 MG CAP PO SCH (09:43)
[2022-08-21] MEDS: GABAPENTIN 100 MG CAPSULE PO SCH ×2 (09:43→15:48)
[2022-08-21] MEDS: ASPIRIN 325MG TAB PO SCH (09:43)
[2022-08-21] MEDS: POLYETHYLENE GLYCOL 3350 17 GM POWD.PACK PO SCH (09:44)
[2022-08-21 11:52] VITALS: BP 180/106
[2022-08-21] MEDS ORDERED: ASPI-1026 PO (14:32)
[2022-08-21] MEDS ORDERED: DOCU-116 PO (14:32)
[2022-08-21] MEDS ORDERED: CYCL-309 PO (14:32)
[2022-08-21] MEDS ORDERED: GABA100C PO (14:32)
[2022-08-21] MEDS ORDERED: HYDR-4060 PO (14:32)
[2022-08-21 16:00] VITALS: BP 140/79
[2022-08-22] MEDS ORDERED: BISACODYL 10 MG SUPP.RECT RC PRN (10:30)
== END 2022-08-21 16:55 | disposition home or self-care (01) | DRG 470 ==
LOC: INTOOBSV 08-19 06:03 → DAHIP 08-19 06:03 → OBSVTOIN 08-19 06:03 → 4CH 08-19 11:15
PROVIDERS: ADMIT Student in an Organized Health Care Education/Training Program; ATTEND Student in an Organized Health Care Education/Training Program
PROC: 0SRC0J9 Replacement of Right Knee Joint with Synthetic Substitute, Cemented, Open Approach (ICD-10-PCS; principal; 2022-08-19 07:15)
DX: M17.11 Unilateral primary osteoarthritis, right knee (principal); D62 Acute posthemorrhagic anemia; Z20.822 Contact with and (suspected) exposure to COVID-19
CPT/HCPCS: 36415; 73560; 80048; 81003; 82040; 84134; 85025; 85027; 85610; 85730; 86140; 87088; 87426; 87641; 97039; G0378; J0330; J0690; J1100; J1200; J1885; J2250; J2370; J2704; J2795; J3010; J3490; J7120

== ENCOUNTER → 2023-02-04 | Outpatient (CLI) | payer OTHER, MEDICARE ==
[~2023-02-04] MED LIST changes: +ASPI-1026 PO; +CYCL-309 PO; +DOCU-116 PO; +GABA100C PO; +HYDR-4060 PO; +NAPR220T57 PO
[2023-02-04 10:48] LABS: BASOPHILS # (AUTO) 0.04 K/uL (0.00-0.20); BASOPHILS % (AUTO) 0.6 % (0.0-5.0); EOSINOPHILS # (AUTO) 0.22 K/uL (0.00-0.70); EOSINOPHILS % (AUTO) 3.2 % (0.0-8.0); IMMATURE GRANULOCYTE ABSOLUTE 0.02 K/uL (0-1); LYMPHOCYTES # (AUTO) 1.5 K/uL (1.0-4.8); LYMPHOCYTES % (AUTO) 21.6 % (21.0-51.0); MEAN CORPUSCULAR HEMOGLOBIN 30.3 pg (27.0-33.0); MEAN CORPUSCULAR HGB CONC 32.1 g/dL (32.0-36.0); MEAN CORPUSCULAR VOLUME 94.5 fL (79-99); MONOCYTES # (AUTO) 0.5 K/uL (0.1-1.0); MONOCYTES % (AUTO) 7.2 % (3.0-13.0); NEUTROPHILS # (AUTO) 4.6 K/uL (1.8-7.7); NEUTROPHILS % (AUTO) 67.1 % (40.0-77.0); PLATELET COUNT (AUTO) 186 K/uL (130-400); RED BLOOD CELL COUNT(AUTO) 5.08 MIL/uL (4.50-6.20); RED CELL DISTRIBUTION WIDTH 13.6 % (11.0-15.5); WHITE BLOOD COUNT (AUTO) 6.8 K/uL (4.8-10.8)
[2023-02-04 10:50] LABS: APPEARANCE,URINE CLEAR (CLEAR); BILIRUBIN,URINE NEGATIVE (NEGATIVE); COLOR,URINE YELLOW (YELLOW); GLUCOSE, URINE (UA) NEGATIVE (NEGATIVE); KETONES,URINE NEGATIVE (NEGATIVE); LEUKOCYTE ESTERASE ,URINE 250 Leu/uL (NEGATIVE); NITRATE,URINE NEGATIVE (NEGATIVE); OCCULT BLOOD,URINE NEGATIVE (NEGATIVE); PH,URINE 5.5 (5.0-8.0); PROTEIN,URINE NEGATIVE (NEGATIVE); UROBILINOGEN,URINE 0.2 mg/dL (0.2-1.0)
[2023-02-04 11:01] LABS: ADD UA MICROSCOPIC YES
[2023-02-04 11:02] LABS: MUCUS,URINE RARE LPF (None Seen); SQUAMOUS EPITHELIAL CELL,UR RARE /HPF (0-2)
[2023-02-04 11:13] LABS: BILIRUBIN,TOTAL 0.7 mg/dL (0.2-1.0); POTASSIUM 4.6 mmol/L (3.5-5.1); THYROID STIMULATING HORMONE 2.27 uIU/mL (0.36-3.74); TOTAL PROTEIN, SERUM 7.9 g/dL (6.0-8.3)
[2023-02-04 12:06] LABS: ERYTHROCYTE SEDIMENTATION RATE 20 MM/HR (0-20)
== END | disposition home or self-care (01) ==
LOC: LAB 09:42
PROVIDERS: ATTEND Nurse Practitioner Family
DX: Z12.5 Encounter for screening for malignant neoplasm of prostate (principal); I10 Essential (primary) hypertension; E78.00 Pure hypercholesterolemia, unspecified; K21.9 Gastro-esophageal reflux disease without esophagitis
CPT/HCPCS: 36415; 80053; 80061; 81001; 83013; 84153; 84439; 84443; 84481; 85025; 85651; 87077; 87088; 87186

== ENCOUNTER → 2023-07-14 | Outpatient (CLI) | payer OTHER ==
[~2023-07-14] MED LIST changes: -OLME20TA22 PO; +OLME20TA68 PO
== END | disposition home or self-care (01) ==
LOC: OIH 10:06
PROVIDERS: ATTEND Internal Medicine
DX: I70.0 Atherosclerosis of aorta (principal); I10 Essential (primary) hypertension
CPT/HCPCS: 71046

== ENCOUNTER 2024-08-09 07:37 | Day surgery (SDC) | payer OTHER ==
[2024-08-09] VITALS (10 sets, daily range): BP systolic 100–132; BP diastolic 59–83; PULSE 56–73; RESP 14–17; TEMP 97.2–97.9
[~2024-08-09] VITALS: Ht 175.3 cm; Wt 107.5 kg
[~2024-08-09 07:37] MED LIST changes: -ASPI-1026 PO; -CYCL-309 PO; -DOCU-116 PO; -GABA100C PO; -HYDR-4060 PO; -HYDR12.54 PO; -NAPR220T57 PO
[2024-08-09] MEDS: 0.9%NACL 1000ML 1,000 ML IV ONE (09:35)
[2024-08-09] MEDS ORDERED: proPOFol 10 MG/ML 20ML VIAL IV ONE ×2 (11:07→11:28)
== END 2024-08-09 12:35 | disposition home or self-care (01) ==
LOC: ENDO 07:37 → DAH 07:37 → ENDO 12:35
PROVIDERS: ATTEND Internal Medicine Gastroenterology
DX: R14.0 Abdominal distension (gaseous) (principal); K55.8 Other vascular disorders of intestine; K63.5 Polyp of colon; K29.50 Unspecified chronic gastritis without bleeding; K31.A11 Gastric intestinal metaplasia without dysplasia, involving the antrum; K57.30 Diverticulosis of large intestine without perforation or abscess without bleeding; K63.3 Ulcer of intestine; K31.89 Other diseases of stomach and duodenum; I10 Essential (primary) hypertension; E78.5 Hyperlipidemia, unspecified; M19.90 Unspecified osteoarthritis, unspecified site; Z86.0100 Personal history of colon polyps, unspecified; Z96.643 Presence of artificial hip joint, bilateral; Z79.899 Other long term (current) drug therapy
CPT/HCPCS: 45380; 45385; 43239; 00813; J7030; J2704 ×2; A4620; A4215 ×2; A4223; A4222; A4221; A4663; A4606; J3490